=== PATIENT | male | born 1990 | race Caucasian/White ===

== ENCOUNTER 2016-07-28 06:07 | Emergency (ER) | payer BC ==
[2016-07-28] MEDS ORDERED: KETOROLAC TROMETHAMINE 30 MG/1 ML VIAL IVPUSH ONE (06:19)
[2016-07-28] MEDS ORDERED: KETOROLAC TROMETHAMINE 30 MG/1 ML VIAL ONE (06:19)
[2016-07-28] MEDS ORDERED: ONDANSETRON 4 MG/2 ML VIAL ONE (06:19)
--- NOTE | 2016-07-28 06:19 | PDOC ---
History of Present Illness - General Chief Complaint: Back Pain Stated Complaint: BACK PAIN, VOMITING Time Seen by Provider: 07/28/16 06:18 History Source: Patient Past History - Past Medical History Allergies/Adverse Reactions: Allergies Allergy/AdvReac Type Severity Reaction Status Date / Time No Known Allergies Allergy Verified 07/28/16 06:27 Home Medications: Ambulatory Orders Naproxen [Naprosyn -] 500 mg PO BID #14 tablet 07/28/16 Ondansetron [Zofran Odt -] 4 mg SL TID PRN #21 od.tablet 07/28/16 HTN: Yes - Surgical History Appendectomy: Yes - Psycho/Social/Smoking Cessation Hx Anxiety: No Suicidal Ideation: No Smoking History: Never smoked Have you smoked in the past 12 months: No Hx Alcohol Use: No Drug/Substance Use Hx: No Substance Use Type: None ED Treatment Course - LABORATORY CBC & Chemistry Diagram: 07/28/16 06:28 07/28/16 06:28 *DC/Admit/Observation/Transfer Diagnosis at time of Disposition: Flank pain - Discharge Dispostion Disposition: HOME - Prescriptions Prescriptions: Naproxen [Naprosyn -] 500 mg PO BID #14 tablet Ondansetron [Zofran Odt -] 4 mg SL TID PRN #21 od.tablet PRN Reason: Nausea - Referrals Referrals: Stormy Hernandez MD [Primary Care Provider] - 3 days - Patient Instructions Printed Discharge Instructions: DI for Kidney Stones Additional Instructions: -Rest and stay well-hydrated -Take Naproxen as needed for pain and Zofran as needed for nausea -Follow up with your primary care doctor this week and have your lab work including CBC and BMP repeated -Return for any concerning symptoms - Post Discharge Activity Work/School Note: Back to Work
[2016-07-28] MEDS ORDERED: SODIUM CHLORIDE 1,000 ML IV STA (06:20)
[2016-07-28 06:33] VITALS: BP 156/89; PULSE 104; BMI 25.8
[2016-07-28 06:41] LABS: BASOPHIL 0.3 % (0-2.0); EOSINOPHIL 0.1 % (0-4.5); MCH 29.9 pg (25.7-33.7); MCHC 34.4 g/dl (32.0-35.9); MEAN CELL VOLUME 86.9 fl (80-96); MEAN PLT VOLUME 8.7 fl (7.5-11.1); NEUTROPHILS 93.2 % (42.8-82.8); PLATELET COUNT 234 K/MM3 (134-434); RDW 13.4 % (11.9-15.9); WHITE BLOOD COUNT 15.3 K/mm3 (4.0-10.0)
[2016-07-28 07:09] LABS: ALBUMIN 4.6 g/dl (3.4-5.0); ALK PHOS 48 U/L (45-117); ANION GAP 15 (8-16); BILIRUBIN,TOTAL 1.2 mg/dL (0.2-1.0); CALCIUM 9.1 mg/dL (8.5-10.1); CO2 20 mmol/L (21-32); CREATININE 1.3 mg/dL (0.7-1.3); GLUCOSE,RANDOM 147 mg/dL (74-106); SGOT/AST 36 U/L (15-37); SGPT/ALT 36 U/L (12-78); TOT PROT 7.8 g/dl (6.4-8.2)
--- NOTE | 2016-07-28 07:17 | PDOC ---
*Physical Exam - Vital Signs Last Vital Signs Temp Pulse Resp BP Pulse Ox 104 H 18 156/89 100 07/28/16 06:29 07/28/16 06:29 07/28/16 06:29 07/28/16 06:29 ED Treatment Course - LABORATORY CBC & Chemistry Diagram: 07/28/16 06:28 07/28/16 06:28 - ADDITIONAL ORDERS Additional order review: Laboratory Results 07/28/16 06:28 Sodium 139 Potassium 3.7 Chloride 104 Carbon Dioxide 20 L Anion Gap 15 BUN 26 H Creatinine 1.3 Creat Clearance w eGFR > 60 Random Glucose 147 H Calcium 9.1 Total Bilirubin 1.2 H AST 36 ALT 36 Alkaline Phosphatase 48 Total Protein 7.8 Albumin 4.6 07/28/16 06:28 RBC 5.21 MCV 86.9 MCHC 34.4 RDW 13.4 MPV 8.7 Neutrophils % 93.2 H Lymphocytes % 3.1 L Monocytes % 3.3 L Eosinophils % 0.1 Basophils % 0.3 - Medications Given in the ED: ED Medications Discontinued Medications Generic Name Dose Route Start Last Admin Trade Name Reza PRN Reason Stop Dose Admin Ketorolac Tromethamine 30 mg 07/28/16 06:19 07/28/16 06:34 Toradol Injection - IVPUSH 07/28/16 06:20 30 mg ONCE ONE Administration Medical Decision Making - Medical Decision Making 07/28/16 07:17 Signout received from SUNNY Kurtz. Briefly, this is a 26 year old male who presented to the ED complaining of flank pain and vomiting. The patient has refused physical exam. Basic labs, UA, and CTAP to rule out nephrolithiasis are pending. He has received Toradol and Zofran. He now agrees to exam. He reports that he has had waxing and waning left flank pain for one month. He was seen by his PCP and told it was likely secondary to his recent rib fracture. He reports taking Tylenol with some relief. Last night, the pain became acutely worse and he vomited several times. He denies dysuria, hematuria , fevers/chills, or any other symptoms. Surgical history includes appendectomy. There is no family or personal history of kidney stones. Labs are notable for WBC 15.3, BUN/Cr 26/1.3 UA no blood or leukocytesterase TBili 1.2 REVIEW OF SYSTEMS: GENERAL/CONSTITUTIONAL: No fever or chills. No weakness. No weight change. HEAD, EYES, EARS, NOSE AND THROAT: No change in vision. No ear pain or discharge. No sore throat. CARDIOVASCULAR: No chest pain or palpitations. RESPIRATORY: No cough, wheezing, or shortness of breath. GASTROINTESTINAL: Vomiting last night. No diarrhea or constipation. GENITOURINARY: Left flank pain waxing and waning for one month, acutely worse since last night. No dysuria, frequency, or change in urination. MUSCULOSKELETAL: No joint or muscle swelling or pain. No neck or back pain. SKIN: No rash or easy bruising. NEUROLOGIC: No headache, vertigo, loss of consciousness, or loss of sensation. PSYCHIATRIC: No depression or anxiety. ENDOCRINE: No increased thirst. No abnormal weight change. HEMATOLOGIC/LYMPHATIC: No anemia, easy bleeding, or history of blood clots. ALLERGIC/IMMUNOLOGIC: No hives or skin allergy. No latex allergy. PHYSICAL EXAM: GENERAL: The patient is awake, alert, and fully oriented, in no acute distress. HEAD: Normal with no signs of trauma. ENT: Pupils equal, round and reactive to light, extraocular movements intact, sclera anicteric, conjunctiva clear. Neck supple. LUNGS: Clear to auscultation bilaterally. Normal excursion. No respiratory distress or use of accessory muscles. CV: RRR, S1/S2, no MRG. Cap refill < 2 sec. ABDOMEN: Soft, non-distended, non-tender anteriorly, left CVA tenderness. EXTREMITIES: Normal range of motion, no edema. NEUROLOGICAL: Normal speech, normal gait. CN II-XII grossly intact. PSYCH: Normal mood, normal affect. SKIN: Warm, dry, normal turgor, no rashes or lesions noted. Plan: -Await CT results -Await UA results -4mg morphine IVP now for pain -Re-evaluate 07/28/16 09:49 CT negative for nephrolithiasis. Healing fracture of 11th rib and deformity of the 10th rib are noted. Patient feeling better and is tolerating PO. *DC/Admit/Observation/Transfer Diagnosis at time of Disposition: Flank pain - Discharge Dispostion Disposition: HOME Admit: No - Prescriptions Prescriptions: Naproxen [Naprosyn -] 500 mg PO BID #14 tablet Ondansetron [Zofran Odt -] 4 mg SL TID PRN #21 od.tablet PRN Reason: Nausea - Referrals Referrals: Stormy Hernandez MD [Primary Care Provider] - 3 days - Patient Instructions Printed Discharge Instructions: DI for Kidney Stones Additional Instructions: -Rest and stay well-hydrated -Take Naproxen as needed for pain and Zofran as needed for nausea -Follow up with your primary care doctor this week and have your lab work including CBC and BMP repeated -Return for any concerning symptoms - Post Discharge Activity Work/School Note: Back to Work
[2016-07-28] MEDS ORDERED: morphine CARPU-JECT 4 MG/1 ML DISP.SYRIN IVPUSH ONE (07:52)
[2016-07-28] MEDS ORDERED: SODIUM CHLORIDE 1,000 ML IV SCH (08:00)
[2016-07-28] MEDS ORDERED: morphine CARPU-JECT 4 MG/1 ML DISP.SYRIN ONE (08:04)
[2016-07-28 08:34] LABS: URINE APPEARANCE CLEAR; URINE BILIRUBIN NEGATIVE (NEGATIVE); URINE BLOOD NEGATIVE (NEGATIVE); URINE COLOR YELLOW; URINE GLUCOSE (UA) NEGATIVE (NEGATIVE); URINE KETONE 1+ (NEGATIVE); URINE LEUK ESTERASE NEGATIVE (NEGATIVE); URINE NITRITE NEGATIVE (NEGATIVE); URINE PROTEIN NEGATIVE (NEGATIVE); URINE UROBILINOGEN NEGATIVE E.U./dl (0.2-1.0)
== END 2016-07-28 10:03 | disposition home or self-care (01) ==
LOC: JER 06:07
PROC: 3E0337Z Introduction of Electrolytic and Water Balance Substance into Peripheral Vein, Percutaneous Approach (ICD-10-PCS; principal; 2016-07-28)
PROC: 3E033NZ Introduction of Analgesics, Hypnotics, Sedatives into Peripheral Vein, Percutaneous Approach (ICD-10-PCS; 2016-07-28)
PROC: 3E0333Z Introduction of Anti-inflammatory into Peripheral Vein, Percutaneous Approach (ICD-10-PCS; 2016-07-28)
DX: R10.32 Left lower quadrant pain (principal)
CPT/HCPCS: 36415; 74176; 80053; 81003; 85025; 99282-25

== ENCOUNTER 2017-11-10 17:27 | Emergency (ER) | payer BC ==
[2017-11-10 18:02] VITALS: BP 135/67; PULSE 74; TEMP 98.6; BMI 24.2
--- NOTE | 2017-11-10 19:50 | PDOC ---
History of Present Illness - General Chief Complaint: Injury Stated Complaint: LEG INJURY Time Seen by Provider: 11/10/17 19:08 - History of Present Illness Initial Comments: 27-year-old male presents for evaluation of right calf injury. 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 He denies prior problems with the catheter he points to the medial aspect of his gastroc as the area of his discomfort. He describes this pain is achy exacerbated with activity and relieved with rest and free of radiation. 11/10/17 19:46 Past History - Past Medical History Allergies/Adverse Reactions: Allergies Allergy/AdvReac Type Severity Reaction Status Date / Time No Known Allergies Allergy Verified 11/10/17 17:57 Home Medications: Ambulatory Orders NK [No Known Home Medication] 11/10/17 COPD: No HTN: Yes - Surgical History Appendectomy: Yes - Suicide/Smoking/Psychosocial Hx Smoking History: Never smoked Have you smoked in the past 12 months: No Hx Alcohol Use: No Drug/Substance Use Hx: No Substance Use Type: None Review of Systems - Review of Systems Constitutional: Yes: See HPI *Physical Exam - Vital Signs Last Vital Signs Temp Pulse Resp BP Pulse Ox 98.6 F 74 19 135/67 100 11/10/17 17:57 11/10/17 17:57 11/10/17 17:57 11/10/17 17:57 11/10/17 17:57 - Physical Exam Comments: Right lower extremity reveals normal skin color and temperature for range of motion of the knee which is nonpainful. Full range of motion of the ankle with medial gastroc pain. His calf is soft. There is tenderness over his medial gastroc. He has a negative Benz's test. His Achilles is intact. There are no gross sensory or motor deficits. 11/10/17 19:47 *DC/Admit/Observation/Transfer Diagnosis at time of Disposition: Strain of calf muscle - Discharge Dispostion Disposition: HOME Condition at time of disposition: Stable Admit: No - Referrals Referrals: Domingo Burch MD [Staff Physician] - - Patient Instructions Printed Discharge Instructions: Calf Muscle Strain, DI for Calf Muscle Strain Additional Instructions: Weight-bear as tolerated with the use of crutches. If symptoms worsen or go unresolved prior to follow-up return for reevaluation to the emergency room. - Post Discharge Activity
== END 2017-11-10 19:52 | disposition home or self-care (01) ==
LOC: JER 17:27 → JERFT 17:27
DX: S86.111A Strain of other muscle(s) and tendon(s) of posterior muscle group at lower leg level, right leg, initial encounter (principal); X50.0XXA Overexertion from strenuous movement or load, initial encounter; Y93.B9 Activity, other involving muscle strengthening exercises; Y92.39 Other specified sports and athletic area as the place of occurrence of the external cause; Y99.8 Other external cause status
CPT/HCPCS: 99281-25